=== PATIENT | male | born 1955 | race African-American/Black ===

== ENCOUNTER 2020-01-22 08:00 | Day surgery (SDC) | payer OTHER ==
[2020-01-19 09:18] VITALS: BMI 19.2
[~2020-01-22 08:00] MED LIST: LACTATED RINGERS 1,000 ML IV SCH; LIDOCAINE 1% (10MG/ML) FOR IV START INTRADERMA PRN
[2020-01-22 08:37] VITALS: RESP 16; TEMP 97.9
[2020-01-22] MEDS ORDERED: PROPOFOL 10 MG/ML 20 ML VIAL IV ONE (08:37)
[2020-01-22] MEDS ORDERED: LIDOCAINE 1% INJ 10MG/ML (20 ML MDV) ONE (08:37)
--- NOTE | 2020-01-22 08:56 | P.PCN ---
Date of Procedure: 01/22/20 Preoperative Diagnosis: Right upper quadrant pain, loss of appetite Postoperative Diagnosis: Right upper quadrant pain, loss of appetite, esophagitis, gastritis Procedure(s) Performed: EGD with biopsy Anesthesia: MAC Surgeon: Callie Huitron Pathology: other Condition: stable Disposition: PACU Indications for Procedure: Patient is a 64-year-old man who has had abdominal pain and loss of appetite. He's taken to the endoscopy suite were gastroscope is passed per mouth to the third and fourth portions of the duodenum. The pharynx is unremarkable. The upper esophagus is without evidence of esophagitis or mass lesion. He does have evidence of esophagitis of the distal 2 cm of esophagus. Cold biopsies were obtained. on entry to the stomach he has over 100 mL's of retained undigested food material. He has some chronic appearing gastritis in the antrum and cold biopsies were obtained. Otherwise stomach, pylorus and duodenum were without evidence of polyp, mass lesion, other mucosal abnormality. He tolerated the procedure without difficulty and was taken recovery room in satisfactory condition. We'll call with the report of the biopsies and have further recommendations to follow. Plan - Discharge Summary Discharge Rx Participant: No New Discharge Prescriptions: New Omeprazole 20 mg PO DAILY #30 tablet. No Action Phenytoin Sodium Extended [Dilantin] 200 mg PO AC-SUPPER Phenytoin Sodium Extended [Dilantin] 100 mg PO 0800,2200 Discharge Medication List Phenytoin Sodium Extended [Dilantin] 100 mg PO 0800,2200 01/19/20 [History] Phenytoin Sodium Extended [Dilantin] 200 mg PO AC-SUPPER 01/19/20 [History] Omeprazole 20 mg PO DAILY #30 tablet. 01/22/20 [Rx] Discharge Disposition: HOME SELF-CARE
[2020-01-22 09:15] VITALS: BP 122/79; PULSE 79
== END 2020-01-22 09:53 | disposition home or self-care (01) ==
LOC: ORWHC2ENDO 08:00 → EDBD 08:30 → ORWHC2ENDO 09:53
PROVIDERS: ATTEND Surgery
DX: K20.90 Esophagitis, unspecified without bleeding (principal); K29.70 Gastritis, unspecified, without bleeding; F32.9 Major depressive disorder, single episode, unspecified; R56.9 Unspecified convulsions; Z79.899 Other long term (current) drug therapy; Z98.890 Other specified postprocedural states; Z97.2 Presence of dental prosthetic device (complete) (partial); Z96.7 Presence of other bone and tendon implants; Z83.3 Family history of diabetes mellitus; Z80.3 Family history of malignant neoplasm of breast
CPT/HCPCS: 88305; 43239; J2001; J2704

== ENCOUNTER 2022-07-28 15:37 | Observation (INO) | payer MEDICARE, OTHER ==
[2022-07-28] MEDS ORDERED: ACETAMINOPHEN TAB 325 MG TAB PO PRN (17:18)
--- NOTE | 2022-07-28 17:31 | XR ---
EXAMINATION TYPE: XR foot complete RT DATE OF EXAM: 07/28/2022 COMPARISON: NONE HISTORY: 66-year-old male ankle pain for 4 weeks after fall, injury TECHNIQUE: 3 views FINDINGS: Exam is markedly limited due to osteopenia, prominent hammertoes, and hallux valgus deformi ty. Moderate degenerative change of the tibiotalar joint, suspected to be chronic sequela of previous trauma. No displaced fracture is identified. IMPRESSION: 1. Very limited exam due to the degree of osteopenia and deformities including hammertoes and hallux valgus. No displaced fracture is seen. 2. 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
--- NOTE | 2022-07-28 17:34 | ED ---
General Adult HPI - General Chief complaint: Extremity Injury, Lower Stated complaint: Right Shoulder Pain-previous fall Time Seen by Provider: 07/28/22 16:35 Source: family Mode of arrival: wheelchair Limitations: no limitations - History of Present Illness Initial comments: Patient is a 66-year-old male who presents to the emergency department of multi ple injuries. Patient sustained fall approximate 4 weeks ago secondary to UTI with sepsis fracturing his right shoulder. Patient also sustained a right ankle sprain. According to patient and family pain is poorly controlled at home patient has not been wearing his sling. He has pain in his right foot with ambulation. Patient unable to perform activities of daily living. They spoke with Dr. French who instructed them to come to the emergency department for admission and rehab placement into [facility]. Patient currently reports a little pain states states his pain is mostly with movement. He denies fever, chills, abdominal pain, burning with urination, nausea, vomiting. Denies chest pain and shortness of breath. - Related Data Home Medications Medication Instructions Recorded Confirmed Phenytoin Sodium Extended 100 mg PO 0800,2200 01/19/20 01/19/20 [Dilantin] Phenytoin Sodium Extended 200 mg PO AC-SUPPER 01/19/20 01/19/20 [Dilantin] Previous Rx's Medication Instructions Recorded Omeprazole 20 mg PO DAILY #30 tablet. 01/22/20 Allergies Allergy/AdvReac Type Severity Reaction Status Date / Time No Known Allergies Allergy Verified 01/22/20 08:26 Review of Systems ROS Statement: Those systems with pertinent positive or pertinent negative responses have been documented in the HPI. ROS Other: All systems not noted in ROS Statement are negative. Past Medical History Past Medical History: Memory Impairment, Osteoarthritis (OA), Seizure Disorder Additional Past Medical History / Comment(s): no seizures for years, epigastric pain through to back for couple months, memory loss due to TBI History of Any Multi-Drug Resistant Organisms: None Reported Past Surgical History: Orthopedic Surgery Additional Past Surgical History / Comment(s): vasectomy, femur surgery Past Anesthesia/Blood Transfusion Reactions: No Reported Reaction Past Psychological History: Anxiety, Depression Smoking Status: Never smoker Past Alcohol Use History: Occasional Past Drug Use History: Marijuana General Exam Limitations: no limitations General appearance: alert, in no apparent distress Head exam: Present: atraumatic, normocephalic, normal inspection Eye exam: Present: normal appearance, PERRL, EOMI. Absent: scleral icterus, c onjunctival injection, periorbital swelling Respiratory exam: Present: normal lung sounds bilaterally. Absent: respiratory distress, wheezes, rales, rhonchi, stridor Cardiovascular Exam: Present: regular rate, normal rhythm, normal heart sounds. Absent: systolic murmur, diastolic murmur, rubs, gallop, clicks Extremities exam: Present: other (mild right ankle swelling laterally no erythema, blanching, tenderness. Pain to the distal third and fourth metatarsals no overlying erythema, swelling, ecchymosis. Neurovascularly intact full range of motion) Neurological exam: Present: alert, oriented X3, CN II-XII intact Psychiatric exam: Present: normal affect, normal mood Skin exam: Present: warm, dry, intact, normal color. Absent: rash Course Vital Signs 07/28/22 15:39 Temperature 97.6 F Pulse Rate 67 Respiratory 18 Rate Blood Pressure 124/77 O2 Sat by Pulse 95 Oximetry Medical Decision Making - Medical Decision Making Was pt. sent in by a medical professional or institution (, PA, COLLECTIONS SPECIALIST, urgent care, hospital, or assisted...) When possible be specific @ -Dr. French today Did you speak to anyone other than the patient for history (EMS, parent, family, police, friend...)? What history was obtained from this source @ -family helped provide history Did you review nursing and triage notes (agree or disagree)? Why? @ -I reviewed and agree with nursing and triage notes Were old charts reviewed (outside hosp., previous admission, EMS record, old EKG, old radiological studies, urgent care reports/EKG's, assisted records)? Report findings @ -No old charts were reviewed Differential Diagnosis (chest pain, altered mental status, abdominal pain women, abdominal pain men, vaginal bleeding, weakness, fever, dyspnea, syncope, headache, dizziness, GI bleed, back pain, seizure, CVA, palpatations, mental health)? @. foot fracture, ankle sprain, right shoulder fracture EKG interpreted by me (3pts min.). @ -As above X-rays interpreted by me (1pt min.). @ - no definite fracture of right foot CT interpreted by me (1pt min.). @ -None done U/S interpreted by me (1pt. min.). @ -None done What testing was considered but not performed or refused? (CT, X-rays, U/S, labs)? Why? @ -None What meds were considered but not given or refused? Why? @ -None Did you discuss the management of the patient with other professionals (professionals i.e. DrJackeline, PA, COLLECTIONS SPECIALIST, lab, RT, psych nurse, bilingual social worker, maintenance worker house trailer, teacher, collections officer, hospice case manager)? Give summary @ -No Was smoking cessation discussed for >3mins.? @ -No Was critical care preformed (if so, how long)? @ -No Were there social determinants of health that impacted care today? How? (Homelessness, low income, unemployed, alcoholism, drug addiction, transportation, low edu. Level, literacy, decrease access to med. care, prison, rehab)? @ -No Was there de-escalation of care discussed even if they declined (Discuss DNR or withdrawal of care, Hospice)? DNR status @ -No What co-morbidities impacted this encounter? (DM, HTN, Smoking, COPD, CAD, Cancer, CVA, ARF, Chemo, Hep., AIDS, mental health diagnosis, sleep apnea, morbid obesity)? @ -None Was patient admitted / discharged? Hospital course, mention meds given and route, prescriptions, significant lab abnormalities, going to OR and other pertinent info. @ Admitted for rehab placement. Undiagnosed new problem with uncertain prognosis? @ -No Drug Therapy requiring intensive monitoring for toxicity (Heparin, Nitro, Insulin, Cardizem)? @ -No Were any procedures done? @ -No Diagnosis/symptom? @ -fall, multiple injuries Acute, or Chronic, or Acute on Chronic? @ -acute Uncomplicated (without systemic symptoms) or Complicated (systemic symptoms)? @ -uncomplicated Side effects of treatment? @ -No Exacerbation, Progression, or Severe Exacerbation? @ -No Poses a threat to life or bodily function? How? (Chest pain, USA, DC, pneumonia, PE, COPD, DKA, ARF, appy, cholecystitis, CVA, Diverticulitis, Homicidal, Suicidal, threat to staff... and all critical care pts) @ -No Dr. Garcia is my attending Disposition Clinical Impression: Fall, Multiple injuries Disposition: ADMITTED IP TO THIS HOSP Condition: Fair Referrals: Virgil Solano MD [Primary Care Provider] - 1-2 days
[2022-07-28] MEDS: SODIUM CHLORIDE 0.9% 1,000 ML IV SCH (18:06)
[2022-07-28 18:07] LABS: Basophils % (A) 0 %; Eosinophils # (A) 0.1 k/uL (0-0.7); Eosinophils % (A) 1 %; HCT 47.4 % (39.0-53.0); HGB 14.5 gm/dL (13.0-17.5); Hypochromasia Marked; Lymphocytes # (A) 2.7 k/uL (1.0-4.8); Lymphocytes % (A) 43 %; MCH 26.4 pg (25.0-35.0); MCHC 30.6 g/dL (31.0-37.0); MCV 86.3 fL (80.0-100.0); Mean Platelet Volume 8.7; Monocytes # (A) 0.3 k/uL (0-1.0); Monocytes % (A) 4 %; Neutrophils # (A) 3.1 k/uL (1.3-7.7); Neutrophils % (A) 50 %; Platelet Count 176 k/uL (150-450); RBC 5.49 m/uL (4.30-5.90); RDW 15.6 % (11.5-15.5); WBC 6.3 k/uL (3.8-10.6)
[2022-07-28 18:20] LABS: ALT 51 U/L (4-49); AST 69 U/L (17-59); African American GFR (CKD) >90 (>60 ml/min/1.73 sqM); Albumin 4.6 g/dL (3.5-5.0); Alkaline Phosphatase 272 U/L (38-126); Anion Gap 11 mmol/L; Blood Urea Nitrogen 12 mg/dL (9-20); Calcium 9.2 mg/dL (8.4-10.2); Carbon Dioxide 26 mmol/L (22-30); Chloride 104 mmol/L (98-107); Non-African American GFR(CKD) >90 (>60 ml/min/1.73 sqM); Sodium 141 mmol/L (137-145); Total Bilirubin 0.9 mg/dL (0.2-1.3); Total Protein 8.2 g/dL (6.3-8.2)
[2022-07-28 18:22] LABS: Glucose 114 mg/dL (74-99)
[2022-07-28 19:14] LABS: Appearance,Urine Clear (Clear); Bilirubin,Urine Negative (Negative); Blood,Urine Negative (Negative); Color,Urine Yellow; Glucose,Urine (UA) Negative (Negative); Ketones,Urine Negative (Negative); Leukocyte Esterase,Urine Small (Negative); Mucus,Urine Few /hpf; Nitrite,Urine Negative (Negative); Protein,Urine Trace (Negative); RBC,Urine 3 /hpf (0-5); Specific Gravity,Urine 1.029 (1.001-1.035); WBC,Urine 3 /hpf (0-5)
[2022-07-28] MEDS ORDERED: HYDROcodone/APAP 5-325MG 1 EACH TAB PO PRN (22:36)
[2022-07-28] MEDS ORDERED: LORazepam 2 MG/ML INJ IV PRN ×3 (22:41)
[2022-07-28] MEDS ORDERED: LORazepam 1 MG TAB PO PRN ×3 (22:41)
[2022-07-28] MEDS ORDERED: LORazepam 0.5 MG TAB PO PRN (22:41)
[2022-07-29] MEDS: SODIUM CHLORIDE 0.9% 1,000 ML IV SCH ×2 (06:00→20:41)
[2022-07-29] MEDS: PHENYTOIN SODIUM EXTENDED 100 MG CAP PO SCH ×2 (07:48→20:41)
[2022-07-29] MEDS: PRAVASTATIN SODIUM 20 MG TAB PO SCH (07:48)
--- NOTE | 2022-07-29 16:48 | P.HPIM ---
History of Present Illness H&P Date: 07/29/22 Rolo Dixon, is a 66-year-old male who presented to [facility] emergency room with a chief complaint of generalized weakness physical debility and multiple falls He was evaluated in the emergency room vital examination on presentation revealed a temperature of 97.6 pulse 67 respiration 18 blood pressure 124/77 pulse ox 95% on room air Laboratory data revealed a white blood count of 6.3 hemoglobin 14.5 platelet count 176 BUN 12 creatinine 0.4 to AST 69 ALT 51 alkaline phosphatase 272 Testing in the emergency room revealed foot x-ray was done in the emergency room and revealed no evidence of acute fracture Patient was admitted to medical floor for further evaluation and treatment Past medical history is significant for history of hyperlipidemia history of seizure disorder history of daily alcohol use, recent admission to [facility] with urinary tract infection and sepsis, apparent fall with right shoulder fracture. On review of systems patient is alert and oriented 3 in no apparent distress he is complaining of generalized pain and weakness otherwise he denies any complaints there is no fever or chills no headache or dizziness no chest pain no shortness of breath no cough no nausea or vomiting no abdominal pain no diarrhea no blood in the stools no burning with urination however he is complaining of frequency and urgency with urination, there is no hematuria. Past Medical History Past Medical History: Memory Impairment, Osteoarthritis (OA), Seizure Disorder Additional Past Medical History / Comment(s): epigastric pain through to back for couple months, memory loss due to TBI, last seizure about 3 weeks ago History of Any Multi-Drug Resistant Organisms: None Reported Past Surgical History: Orthopedic Surgery Additional Past Surgical History / Comment(s): vasectomy, femur surgery Past Anesthesia/Blood Transfusion Reactions: No Reported Reaction Past Psychological History: Anxiety, Depression Smoking Status: Never smoker Past Alcohol Use History: Occasional Additional Past Alcohol Use History / Comment(s): pint of rum daily Past Drug Use History: Marijuana Additional Drug Use History / Comment(s): past hx. Medications and Allergies Home Medications Medication Instructions Recorded Confirmed Type Phenytoin Sodium Extended 200 mg PO BID 01/19/20 07/28/22 History [Dilantin] HYDROcodone/APAP 5-325MG [Sperry 1 tab PO Q6H PRN 07/28/22 07/28/22 History 5-325] Multivitamins, Thera [Multivitamin 1 tab PO DAILY 07/28/22 07/28/22 History (formulary)] Naproxen [EC-Naprosyn] 500 mg PO BID PRN 07/28/22 07/28/22 History Pravastatin Sodium [Pravachol] 20 mg PO DAILY 07/28/22 07/28/22 History Allergies Allergy/AdvReac Type Severity Reaction Status Date / Time No Known Allergies Allergy Verified 07/28/22 18:26 Physical Exam Vitals: Vital Signs Temp Pulse Pulse Resp BP BP Pulse Ox 07/29/22 07:02 97.7 F 72 15 113/70 99 07/29/22 02:00 97.5 F L 70 17 117/75 95 07/28/22 21:16 97.4 F L 91 17 122/78 94 L 07/28/22 20:56 98.4 F 72 18 126/74 95 07/28/22 20:42 98.4 F 72 18 126/74 95 07/28/22 15:39 97.6 F 67 18 124/77 95 Intake and Output 07/28/22 07/29/22 07/29/22 22:59 06:59 14:59 Output Total 400 150 Balance -400 -150 Output: Urine 400 150 Other: Weight 70.307 kg In general patient is alert and oriented x 3 in no distress HEENT head normocephalic and atraumatic Neck is supple no JVD no goiter no lymphadenopathy no carotid bruit Chest examination is clear to auscultation no crackles no wheezing Cardiac exam reveals regular heart sounds S1 and S2 no gallops no murmurs Abdomen is soft nontender no organomegaly with normal bowel sounds Extremity exam reveals no edema no cyanosis or clubbing Neurological examination reveals no gross focal deficits Results CBC & Chem 7: 07/28/22 17:40 07/28/22 17:40 Labs: Abnormal Lab Results - Last 24 Hours (Table) 07/28/22 07/28/22 07/28/22 Range/Units 17:40 17:40 19:07 MCHC 30.6 L (31.0-37.0) g/dL RDW 15.6 H (11.5-15.5) % Creatinine 0.42 L (0.66-1.25) mg/dL Glucose 114 H (74-99) mg/dL AST 69 H (17-59) U/L ALT 51 H (4-49) U/L Alkaline Phosphatase 272 H (38-126) U/L Urine Protein Trace H (Negative) Ur Leukocyte Esterase Small H (Negative) Urine Mucus Few H (None) /hpf Thrombosis Risk Factor Assmnt - Choose All That Apply Any of the Below Risk Factors Present?: No Other Risk Factors: Yes Each Risk Factor Represents 2 Points: Age 61-74 years Other congenital or acquired thrombophilia - If yes, enter type in comment: No Thrombosis Risk Factor Assessment Total Risk Factor Score: 2 Thrombosis Risk Factor Assessment Level: Low Risk Assessment and Plan Plan: Multiple falls with injuries Physical debility Recent admission to [facility] with urinary tract infection and sepsis Underlying history of seizure disorder Underlying history of hyperlipidemia Elevated liver enzymes Underlying history of daily alcohol use At this time patient is admitted to medical floor Home medications reviewed and reordered Check urine analysis and urine culture Check liver ultrasound Start [facility] protocol Consult physical therapy and occupational therapy, patient will need to be admitted to senior care for 24-hour care Will follow closely
[2022-07-30 07:47] VITALS: RESP 16
--- NOTE | 2022-07-30 08:45 | US ---
EXAMINATION TYPE: US liver DATE OF EXAM: 07/30/2022 COMPARISON: NONE CLINICAL INDICATION: Male, 66 years old with history of Elevated liver enzymes; Elevated liver enzyme s TECHNIQUE: Multiple sonographic images of the right upper quadrant are obtained. FINDINGS: EXAM MEASUREMENTS: Liver Length: 14.6 cm Gallbladder Wall: 0.3 cm CBD: 0.5 cm Right Kidney: 11.4 x 5.5 x 5.1 cm Pancreas: duct = 0.5cm Liver: wnl as visualized Gallbladder: no evidence of stones Evidence for sonographic Miranda's sign: no CBD: appears wnl Right Kidney: lower pole obscured by overlying bowel content IMPRESSION: Mild prominence of the pancreatic duct. Correlation with MRCP. Liver has a normal ultrasound appearan ce.
[2022-07-30] MEDS: PRAVASTATIN SODIUM 20 MG TAB PO SCH (08:59)
[2022-07-30] MEDS: PHENYTOIN SODIUM EXTENDED 100 MG CAP PO SCH ×2 (08:59→21:13)
[2022-07-30] MEDS: SODIUM CHLORIDE 0.9% 1,000 ML IV SCH ×2 (08:59→21:14)
[2022-07-30 11:11] LABS: Basophils # (A) 0.02 X 10*3/uL (0.00-0.10); Basophils % (A) 0.3 %; Eosinophils # (A) 0 X 10*3/uL (0.04-0.35); Eosinophils % (A) 0 %; HCT 36.6 % (39.6-50.0); HGB 11.3 d/dL (12.0-15.0); Lymphocytes # (A) 0.84 X 10*3/uL (0.90-5.00); Lymphocytes % (A) 14.6 %; MCH 25.7 pg (27.0-32.0); MCHC 30.9 d/dL (32.0-37.0); MCV 83.2 FL (80.0-97.0); Mean Platelet Volume 10.5 FL (9.5-12.2); Monocytes # (A) 0.34 X 10*3/uL (0.20-1.00); Monocytes % (A) 5.9 %; NRBC Per 100 WBC 0 X 10*3/uL (0.00-0.01); Neutrophils # (A) 4.55 X 10*3/uL (1.80-7.70); Neutrophils % (A) 78.9 %; Platelet Count 120 X 10*3/uL (140-440); RDW 15.1 % (11.5-14.5); WBC 5.77 X 10*3/uL (4.50-10.00)
[2022-07-30 11:19] LABS: ALT 27 U/L (10-49); AST 19 U/L (14-35); Albumin 3.4 d/dL (3.8-4.9); Albumin/Globulin Ratio 1.55 Ratio (1.60-3.17); Alkaline Phosphatase 189 U/L (41-126); Blood Urea Nitrogen 7.4 mg/dL (9.0-27.0); Calcium 8.4 mg/dL (8.7-10.3); Carbon Dioxide 26.3 mmol/L (21.6-31.8); Chloride 102 mmol/L (96-109); Globulin 2.2 d/dL (1.6-3.3); Glucose 128 mg/dL (70-110); Potassium 3.7 mmol/L (3.5-5.5); Sodium 140 mmol/L (135-145); Total Bilirubin 0.4 mg/dL (0.3-1.2); Total Protein 5.6 d/dL (6.2-8.2)
--- NOTE | 2022-07-30 15:13 | P.PN ---
Subjective Progress Note Date: 07/30/22 Rolo Dixon, is a 66-year-old male who presented to [facility] emergency room with a chief complaint of generalized weakness physical debility and multiple falls He was evaluated in the emergency room vital examination on presentation revealed a temperature of 97.6 pulse 67 respiration 18 blood pressure 124/77 pulse ox 95% on room air Laboratory data revealed a white blood count of 6.3 hemoglobin 14.5 platelet count 176 BUN 12 creatinine 0.4 to AST 69 ALT 51 alkaline phosphatase 272 Testing in the emergency room revealed foot x-ray was done in the emergency room and revealed no evidence of acute fracture Patient was admitted to medical floor for further evaluation and treatment Past medical history is significant for history of hyperlipidemia history of seizure disorder history of daily alcohol use, recent admission to [facility] with urinary tract infection and sepsis, apparent fall with right shoulder fracture. On review of systems patient is alert and oriented 3 in no apparent distress he is complaining of generalized pain and weakness otherwise he denies any complaints there is no fever or chills no headache or dizziness no chest pain no shortness of breath no cough no nausea or vomiting no abdominal pain no diarrhea no blood in the stools no burning with urination however he is complaining of frequency and urgency with urination, there is no hematuria. On 07/30/2022 patient was seen and examined on the medical floor he is alert and oriented 3 in no apparent distress he is complaining of shoulder pain and foot pain otherwise he denies any complaints there is no fever or chills no headache or dizziness no chest pain no shortness of breath no cough no nausea or vomiting no abdominal pain no diarrhea and no urinary symptoms. At this time, we are awaiting evaluation by orthopedic surgery, patient would need transfer to a [facility] post discharge. Labs and medications reviewed will follow in a.m.. Objective - Vital Signs Vital signs: Vital Signs Temp 98.5 F 07/30/22 07:00 Pulse 87 07/30/22 07:00 Resp 16 07/30/22 07:00 BP 95/57 07/30/22 07:00 Pulse Ox 96 07/30/22 07:00 FiO2 Intake & Output 07/29/22 07/30/22 07/30/22 18:59 06:59 18:59 Intake Total 900 0 Output Total 300 325 200 Balance 600 -325 -200 Intake: Intake, IV Titration 900 Amount Sodium Chloride 0.9% 1, 900 000 ml @ 75 mls/hr IV . [id number] [facility] Rx#:[id number] Oral 0 Output: Urine 300 325 200 Other: Voiding Method Urinal Diaper # Voids 2 1 # Bowel Movements 1 - Exam In general patient is alert and oriented x 3 in no distress HEENT head normocephalic and atraumatic Neck is supple no JVD no goiter no lymphadenopathy no carotid bruit Chest examination is clear to auscultation no crackles no wheezing Cardiac exam reveals regular heart sounds S1 and S2 no gallops no murmurs Abdomen is soft nontender no organomegaly with normal bowel sounds Extremity exam reveals no edema no cyanosis or clubbing Neurological examination reveals no gross focal deficits - Labs CBC & Chem 7: 07/30/22 07:04 07/30/22 07:04 Assessment and Plan Plan: Multiple falls with injuries Physical debility Recent admission to [facility] with urinary tract infection and sepsis Underlying history of seizure disorder Underlying history of hyperlipidemia Elevated liver enzymes Underlying history of daily alcohol use At this time patient is admitted to medical floor Home medications reviewed and reordered Check urine analysis and urine culture Check liver ultrasound Start [facility] protocol Consult physical therapy and occupational therapy, patient will need to be admitted to [facility] for 24-hour care Will follow closely
--- NOTE | 2022-07-30 16:31 | P.CNOR ---
History of Present Illness - [facility] Consult date: 07/30/22 Consult reason: joint pain (Right foot pain), fracture (Right proximal humerus fracture) History of present illness: Patient is a 66-year-old male who was brought [facility] due to generalized fatigue, difficulty ambulating difficulty with ADLs. Apparently the patient was [facility] about a month ago with regards to her tract infection, sepsis and a fall that resulted in a right proximal humerus fracture. Patient is a poor historian and has difficult time providing a adecritical access hospitalte review of systems or history of present illness. Patient was complaining of right foot pain along with right shoulder pain, our orthopedic team was consulted. Patient was evaluated today at bedside, he is resting comfortably in his hospital bed. Patient is utilizing arm sling at this time. Patient notes mild discomfort in the right shoulder, mainly with movement. He denies any elbow, hand or wrist pain. With regards to the right foot, he's had discomfort and pain in the right foot for many years. He states he had a previous injury. He denies any surgery. He notices most pain when he ambulates. Patient denies any pain to the left upper extremity or left lower extremity at this time. Patient states he normally lives with a family member who helps with most of his ADLs, he states it has become more difficult for them to take care of him. Currently the patient denies any headaches, lightheadedness, chest pain, shortness of breath, nausea or vomiting, paresthesias in the bilateral upper or lower extremities. Review of Systems Constitutional: Reports as per HPI Past Medical History Past Medical History: Memory Impairment, Osteoarthritis (OA), Seizure Disorder Additional Past Medical History / Comment(s): epigastric pain through to back for couple months, memory loss due to TBI, last seizure about 3 weeks ago History of Any Multi-Drug Resistant Organisms: None Reported Past Surgical History: Orthopedic Surgery Additional Past Surgical History / Comment(s): vasectomy, femur surgery Past Anesthesia/Blood Transfusion Reactions: No Reported Reaction Past Psychological History: Anxiety, Depression Smoking Status: Never smoker Past Alcohol Use History: Occasional Additional Past Alcohol Use History / Comment(s): pint of rum daily Past Drug Use History: Marijuana Additional Drug Use History / Comment(s): past hx. Medications and Allergies Home Medications Medication Instructions Recorded Confirmed Type Phenytoin Sodium Extended 200 mg PO BID 01/19/20 07/28/22 History [Dilantin] HYDROcodone/APAP 5-325MG [[place] 1 tab PO Q6H PRN 07/28/22 07/28/22 History 5-325] Multivitamins, Thera [Multivitamin 1 tab PO DAILY 07/28/22 07/28/22 History (formulary)] Naproxen [EC-Naprosyn] 500 mg PO BID PRN 07/28/22 07/28/22 History Pravastatin Sodium [Pravachol] 20 mg PO DAILY 07/28/22 07/28/22 History Allergies Allergy/AdvReac Type Severity Reaction Status Date / Time No Known Allergies Allergy Verified 07/28/22 18:26 Physical Examination Right lower extremity: No obvious open lesions or sores noted throughout the foot, no significant areas of soft tissue swelling, ecchymosis Hallux rigidus deformity noted in the big toe, multiple hammertoes noted Patient demonstrates no significant tenderness with palpation to the midfoot, forefoot or hindfoot. He is nontender with palpation to the medial and lateral malleolus. He is nontender with palpation of the calcaneus. Flexion, dorsiflexion, eversion and inversion are intact. No focal deficits appreciated. Sensation to light touch is intact throughout the extremity Dorsalis pedis pulses 2+ Right upper extremity: No open lesions or sores are visualized throughout the extremity, no areas of significant ecchymosis or soft tissue swelling Demonstrates tenderness with palpation of the proximal humerus, he is nontender with palpation of the lower arm, elbow, forearm, hand and wrist Range of motion is significantly limited to the right shoulder due to pain, elbow extension and flexion are intact, wrist flexion and wrist extension are intact, he is able to make a fist to wiggle all fingers without difficulty Sensory exam light touch throughout the extremity is intact Radial pulse/ulnar pulses 2+ Results - Labs Labs: Abnormal Lab Results - Last 24 Hours (Table) 07/30/22 07/30/22 Range/Units 07:04 07:04 Hgb 11.3 L (12.0-15.0) d/dL Hct 36.6 L (39.6-50.0) % MCH 25.7 L (27.0-32.0) pg MCHC 30.9 L (32.0-37.0) d/dL RDW 15.1 H (11.5-14.5) % Plt Count 120 L (140-440) X 10*3/uL Lymphocytes # 0.84 L (0.90-5.00) X 10*3/uL Eosinophils # 0 L (0.04-0.35) X 10*3/uL BUN 7.4 L (9.0-27.0) mg/dL Creatinine 0.4 L (0.6-1.5) mg/dL Glucose 128 H (70-110) mg/dL Calcium 8.4 L (8.7-10.3) mg/dL Alkaline Phosphatase 189 H (41-126) U/L Total Protein 5.6 L (6.2-8.2) d/dL Albumin 3.4 L (3.8-4.9) d/dL Albumin/Globulin Ratio 1.55 L (1.60-3.17) Ratio H & H 07/28/22 07/30/22 Range/Units 17:40 07:04 Hgb 14.5 11.3 L (13.0-17.5) gm/dL Hct 47.4 36.6 L (39.0-53.0) % Result Diagrams: 07/30/22 07:04 07/30/22 07:04 - Diagnostic results Shoulder x-ray: report reviewed, image reviewed (X-rays demonstrate a displaced right proximal humerus fracture, there is some callus formation present.) Ankle/Foot x-ray: report reviewed, image reviewed (No obvious fractures or dislocations present. Osteopenia throughout the foot, forefoot and hindfoot. Hallux rigidus first toe, tibial tubular osteoarthritis, mid foot and forefoot arthritis noted) Assessment and Plan Assessment: Displaced right proximal humerus fracture, stable Right foot/ankle pain Right foot hallux rigidus Right ankle osteoarthritis Right forefoot and midfoot osteoarthritis History of recent fall Multiple comorbidities Plan: I was able to discuss the case, was concluded with physical exam findings and imaging studies with my attending Dr. Bower. No emergent orthopedic surgical intervention is recommended at this time. With regards to the right upper extremity, utilize arm sling at this time. Okay utilize ice to the shoulder, some Tylenol and NSAIDs as needed. Avoid excess motion of the right shoulder, basic hand and wrist along with elbow exercises are okay. Follow-up information will be placed in the chart for our general orthopedic surgeon Dr. Crawford for recheck and evaluation of the right shoulder With regards to the right lower extremity, patient understands this is a chronic issue for him. Patient advised to weight-bear as tolerated, getting can utilize Tylenol and NSAIDs for pain. Recommend follow up with a foot and ankle specialist if symptoms continue to worsen DVT prophylaxis per primary medical service Other medical education specialist and recommendations appreciated Discharge planning: Orthopedically patient is stable, recommended subacute rehab placement due to need for assistance with ADLs. Follow up will be placed in chart. Please contact our orthopedic service with any further questions regarding this patient Time with Patient: Less than 30
[2022-07-31 04:58] VITALS: PULSE 89
--- NOTE | 2022-07-31 08:41 | XR ---
EXAMINATION TYPE: XR shoulder complete RT DATE OF EXAM: 07/30/2022 COMPARISON: NONE HISTORY: Pain TECHNIQUE: Three views are submitted. FINDINGS: The osseous structures are intact. There is a displaced fracture of the right humeral neck. There is diffuse osteopenia noted throughout the shoulder. Limited inspiration of the visualized lung field l ikely accounts for prominent markings. AC joint arthropathy probable impingement. IMPRESSION: 1. Displaced right humeral neck fracture
[2022-07-31 11:09] VITALS: BP 104/66; TEMP 99.7
[2022-07-31] MEDS: PRAVASTATIN SODIUM 20 MG TAB PO SCH (11:15)
[2022-07-31] MEDS: PHENYTOIN SODIUM EXTENDED 100 MG CAP PO SCH (11:15)
--- NOTE | 2022-07-31 11:34 | P.DS ---
Providers Date of admission: 07/28/22 19:52 Expected date of discharge: 07/31/22 Attending physician: Virgil Solano Consults: 07/30/22 10:06 Consult Physician Routine Consulting Provider: Emeka Bower Consult Reason/Comments: shoulder and foot pain recent fall Do you want consulting provider notified?: Yes Primary care physician: Virgil Xiomara [facility] Course: Discharge diagnosis Multiple falls with injuries Physical debility Recent admission to [facility] with urinary tract infection and sepsis Underlying history of seizure disorder Underlying history of hyperlipidemia Elevated liver enzymes Underlying history of daily alcohol use urinary tract infection Hospital course Rolo Dixon, is a 66-year-old male who presented to [facility] emergency room with a chief complaint of generalized weakness physical debility and multiple falls He was evaluated in the emergency room vital examination on presentation revealed a temperature of 97.6 pulse 67 respiration 18 blood pressure 124/77 pulse ox 95% on room air Laboratory data revealed a white blood count of 6.3 hemoglobin 14.5 platelet count 176 BUN 12 creatinine 0.4 to AST 69 ALT 51 alkaline phosphatase 272 Testing in the emergency room revealed foot x-ray was done in the emergency room and revealed no evidence of acute fracture Patient was admitted to medical floor for further evaluation and treatment Past medical history is significant for history of hyperlipidemia history of seizure disorder history of daily alcohol use, recent admission to [facility] with urinary tract infection and sepsis, apparent fall with right shoulder fracture. On review of systems patient is alert and oriented 3 in no apparent distress he is complaining of generalized pain and weakness otherwise he denies any complaints there is no fever or chills no headache or dizziness no chest pain no shortness of breath no cough no nausea or vomiting no abdominal pain no diarrhea no blood in the stools no burning with urination however he is complaining of frequency and urgency with urination, there is no hematuria. On 07/30/2022 patient was seen and examined on the medical floor he is alert and oriented 3 in no apparent distress he is complaining of shoulder pain and foot pain otherwise he denies any complaints there is no fever or chills no headache or dizziness no chest pain no shortness of breath no cough no nausea or vomiting no abdominal pain no diarrhea and no urinary symptoms. At this time, we are awaiting evaluation by orthopedic surgery, patient would need transfer to a group home post discharge. Labs and medications reviewed will follow in a.m.. On 07/31/2022 patient is alert and oriented 3 cleared for discharge from orthopedic standpoint. Discharge recommendations in chart. Patient also started on Ceftin for UTI. Patient to follow-up with BX services for further management Patient Condition at Discharge: Stable Plan - Discharge Summary Discharge Rx Participant: No New Discharge Prescriptions: New cefUROXime axetiL [Ceftin] 500 mg PO BID 7 Days #14 tab Continue Phenytoin Sodium Extended [Dilantin] 200 mg PO BID Multivitamins, Thera [Multivitamin (formulary)] 1 tab PO DAILY Naproxen [EC-Naprosyn] 500 mg PO BID PRN PRN Reason: Pain Pravastatin Sodium [Pravachol] 20 mg PO DAILY HYDROcodone/APAP 5-325MG [[place] 5-325] 1 tab PO Q6H PRN 3 Days #12 tab PRN Reason: Pain Discharge Medication List Phenytoin Sodium Extended [Dilantin] 200 mg PO BID 01/19/20 [History] Multivitamins, Thera [Multivitamin (formulary)] 1 tab PO DAILY 07/28/22 [History] Naproxen [EC-Naprosyn] 500 mg PO BID PRN 07/28/22 [History] Pravastatin Sodium [Pravachol] 20 mg PO DAILY 07/28/22 [History] HYDROcodone/APAP 5-325MG [[place] 5-325] 1 tab PO Q6H PRN 3 Days #12 tab 07/31/22 [Rx] cefUROXime axetiL [Ceftin] 500 mg PO BID 7 Days #14 tab 07/31/22 [Rx] Follow up Appointment(s)/Referral(s): Virgil Solano MD [Primary Care Provider] - 1-2 days Khurram Crawford MD [STAFF PHYSICIAN] - 2 Weeks Patient Instructions/Handouts: Fall Prevention for Older Adults (DC) Activity/Diet/Wound Care/Special Instructions: Right arm extremity recommendation per orthopedic services. - Utilize arm sling Ice to the shoulder Tylenol as needed Avoid excessive motion of the right shoulder, basic hand and wrist along with exercise okay Follow-up with Dr. Tong for recheck evaluation of right shoulder Right lower extremity Patient advised to weight-bear as tolerated recommend follow-up with foot and ankle specialist Discharge Disposition: TRANSFER TO SNF/ECF
[2022-07-31] MEDS: SODIUM CHLORIDE 0.9% 1,000 ML IV SCH (13:24)
[2022-07-31 15:48] LABS: Basophils # (A) 0.03 X 10*3/uL (0.00-0.10); Basophils % (A) 0.3 %; Eosinophils # (A) 0 X 10*3/uL (0.04-0.35); Eosinophils % (A) 0 %; HCT 39.6 % (39.6-50.0); Lymphocytes # (A) 1.69 X 10*3/uL (0.90-5.00); Lymphocytes % (A) 18.5 %; MCH 25.7 pg (27.0-32.0); MCHC 30.3 d/dL (32.0-37.0); MCV 84.8 FL (80.0-97.0); Mean Platelet Volume 11.7 FL (9.5-12.2); Monocytes # (A) 0.53 X 10*3/uL (0.20-1.00); Monocytes % (A) 5.8 %; NRBC Per 100 WBC 0 X 10*3/uL (0.00-0.01); Neutrophils # (A) 6.88 X 10*3/uL (1.80-7.70); Neutrophils % (A) 75.2 %; Platelet Count 116 X 10*3/uL (140-440); RBC 4.67 X 10*6/uL (4.40-5.60); RDW 15.4 % (11.5-14.5); WBC 9.15 X 10*3/uL (4.50-10.00)
[2022-07-31 16:00] LABS: ALT 28 U/L (10-49); AST 31 U/L (14-35); Albumin 3.7 d/dL (3.8-4.9); Albumin/Globulin Ratio 1.48 Ratio (1.60-3.17); Alkaline Phosphatase 181 U/L (41-126); BUN/Creat Ratio 11.57 Ratio (12.00-20.00); Blood Urea Nitrogen 8.1 mg/dL (9.0-27.0); Calcium 8.5 mg/dL (8.7-10.3); Carbon Dioxide 27.5 mmol/L (21.6-31.8); Chloride 99 mmol/L (96-109); Globulin 2.5 d/dL (1.6-3.3); Glucose 124 mg/dL (70-110); Potassium 4.2 mmol/L (3.5-5.5); Sodium 136 mmol/L (135-145); Total Bilirubin 0.4 mg/dL (0.3-1.2); Total Protein 6.2 d/dL (6.2-8.2)
== END 2022-07-31 16:45 ==
LOC: EC 15:37 → 4SSUR 19:52
PROVIDERS: ADMIT Internal Medicine; ATTEND Internal Medicine
DX: M25.511 Pain in right shoulder (principal); M79.671 Pain in right foot; R53.1 Weakness; Z87.440 Personal history of urinary (tract) infections; G40.909 Epilepsy, unspecified, not intractable, without status epilepticus; E78.5 Hyperlipidemia, unspecified; R74.8 Abnormal levels of other serum enzymes; M19.90 Unspecified osteoarthritis, unspecified site; R10.13 Epigastric pain; Z86.73 Personal history of transient ischemic attack (TIA), and cerebral infarction without residual deficits; Z87.820 Personal history of traumatic brain injury; R41.3 Other amnesia; Z98.52 Vasectomy status; F41.9 Anxiety disorder, unspecified; F32.A Depression, unspecified; Z79.899 Other long term (current) drug therapy
CPT/HCPCS: 96361 ×2; 96365; 96366; 99284; 36415; 97530; 97162; 97535; 97166; 80053 ×3; 85025 ×3; 81001; 87086; 87077; 87186; 73030; 73630; 76705; G0378 ×4; J0696